=== PATIENT | male | born 1935 | race Caucasian/White ===

== ENCOUNTER → 2017-01-15 | Outpatient (CLI) | payer OTHER, MEDICARE ==
[~2017-01-15] MED LIST: AMLO2.5T PO; ASPI81TA28 PO; CRD2 PO; FRS/40 PO; LISI-729 PO; LORA-741 PO; PANT40TA PO; SIMV10TA2 PO; TRMCR515 TOP
[2017-01-15 12:55] LABS: THYROID STIMULATING HORMONE 5.19 uIu/ml (0.300-4.500)
[2017-01-15 14:01] LABS: ESTIMATED AVERAGE GLUCOSE 131 mg/dl; HA1C FLAG Normal (Normal)
== END | disposition home or self-care (01) ==
LOC: C.LABBFT 08:38
PROVIDERS: ATTEND Internal Medicine
DX: E11.9 Type 2 diabetes mellitus without complications (principal); R89.9 Unspecified abnormal finding in specimens from other organs, systems and tissues

== ENCOUNTER → 2017-03-05 | Outpatient (CLI) | payer OTHER, MEDICARE ==
[2017-03-05 14:39] LABS: THYROID STIMULATING HORMONE 2.44 uIu/ml (0.300-4.500)
== END | disposition home or self-care (01) ==
LOC: C.LAB1850 11:44
PROVIDERS: ATTEND Internal Medicine
DX: E03.9 Hypothyroidism, unspecified (principal)

== ENCOUNTER → 2017-03-27 | Outpatient (CLI) | payer OTHER, MEDICARE ==
[2017-03-27 12:05] LABS: HEMATOCRIT 38.8 % (42-52); MEAN CORPUSCULAR HEMOGLOBIN 27.5 pg (25-34); MEAN PLATELET VOLUME 11.8 fL (7.4-10.4); PLATELET COUNT 174 K/uL (130-400); RED BLOOD COUNT 4.51 M/uL (4.7-6.1); WHITE BLOOD COUNT 5.96 K/uL (4.8-10.8)
[2017-03-27 12:20] LABS: BLOOD UREA NITROGEN 44 mg/dl (7-18); BUN/CREATININE RATIO 23.2 (10-20); CALCIUM 9.1 mg/dl (8.5-10.1); CARBON DIOXIDE 25 mmol/L (21-32); CHLORIDE 109 mmol/L (98-107); GLUCOSE 106 mg/dl (70-99); POTASSIUM 4.3 mmol/L (3.5-5.1); SODIUM 142 mmol/L (136-145)
[2017-03-27 12:21] LABS: PHOSPHORUS 3.7 mg/dl (2.5-4.9)
[2017-03-27 12:56] LABS: URINE APPEARANCE CLEAR (CLEAR); URINE BILIRUBIN NEG (NEG); URINE COLOR YELLOW; URINE EPITHELIAL CELL AUTO 0-5 /lpf (0-5); URINE NITRITE NEG (NEG); URINE SPECIFIC GRAVITY 1.011 (1.000-1.030); UROBILINOGEN NEG (NEG)
[2017-03-27 12:59] LABS: MANUAL MICROSCOPIC REQUIRED? NO; REVIEW REQ? NO
[2017-03-27 13:15] LABS: URINE PROTIEN/CREAT RATIO 1.8 (0-0.2); URINE TOTAL PROTEIN 47.9 mg/dl (0-11.9)
== END | disposition home or self-care (01) ==
LOC: C.LABBFT 08:40
PROVIDERS: ATTEND Internal Medicine Nephrology
DX: I10 Essential (primary) hypertension (principal); R31.29 Other microscopic hematuria; N18.3 Chronic kidney disease, stage 3 (moderate); D64.9 Anemia, unspecified; R60.9 Edema, unspecified

== ENCOUNTER → 2017-08-07 | Outpatient (CLI) | payer OTHER, MEDICARE ==
--- NOTE | 2017-08-07 14:06 | DIAGNOSTIC IMAGING REPORT ---
L HIP UNILATERAL 2 VIEWS HISTORY: 82 years-old Male M25.552 Joint pain of left hip on [id number] acute left hip pain without reported trauma COMPARISON: CT 09/16/2012 TECHNIQUE: 2 views of the left hip FINDINGS: Surgical clip projects over the left inguinal region. Moderate left hip osteoarthritis. Calcifications of the prostate are again seen. Degenerative changes of the left SI joint and pubic symphysis also noted. No acute fracture or dislocation. IMPRESSION: 1. No acute fracture or dislocation. 2. Moderate left hip osteoarthritis. The above report was generated using voice recognition software. It may contain grammatical, syntax or spelling errors. Electronically signed by: Adeel Sanchez M.D. 08/07/2017 2:04 PM Dictated Date/Time: 08/07/2017 2:02 PM
== END | disposition home or self-care (01) ==
LOC: C.RAD1850 13:48
PROVIDERS: ATTEND Internal Medicine
DX: M25.552 Pain in left hip (principal)

== ENCOUNTER → 2017-10-01 | Outpatient (CLI) | payer OTHER, MEDICARE ==
[~2017-10-01] MED LIST changes: +GABA-112 PO; +LEVO25TA5 PO; +LEVO50TA6 PO
[2017-10-01 12:32] LABS: HEMATOCRIT 39.2 % (42-52); HEMOGLOBIN 12.6 g/dL (14.0-18.0); MEAN CELL VOLUME 85.4 fL (80-100); MEAN CORPUSCULAR HEMOGLOBIN 27.5 pg (25-34); MEAN CORPUSCULAR HGB CONC 32.1 g/dl (32-36); MEAN PLATELET VOLUME 11.5 fL (7.4-10.4); PLATELET COUNT 190 K/uL (130-400); RED CELL DISTRIBUTION WIDTH CV 14.4 % (11.5-14.5); RED CELL DISTRIBUTION WIDTH SD 44.6 fL (36.4-46.3); WHITE BLOOD COUNT 8.08 K/uL (4.8-10.8)
[2017-10-01 13:45] LABS: ALBUMIN 3.7 gm/dl (3.4-5.0); BLOOD UREA NITROGEN 46 mg/dl (7-18); CALCIUM 9.3 mg/dl (8.5-10.1); CARBON DIOXIDE 27 mmol/L (21-32); CREATININE 2.01 mg/dl (0.60-1.40); GLUCOSE 112 mg/dl (70-99); POTASSIUM 4.8 mmol/L (3.5-5.1); SODIUM 139 mmol/L (136-145)
--- NOTE | 2017-10-07 13:02 | CODING QUERY MEDICAL NECESSITY ---
CQSUPPORTING DIAGNOSIS NEEDED A supporting diagnosis is required for the test/procedure performed on this patient in order for us to be reimbursed by the patient's insurance. Please provide a supporting diagnosis for the following test/procedure listed below next to the test name along with your signature. *If there is no additional diagnosis for this patient that would support the following test/procedure please document that below next to the test/procedure. Test(s)/Procedure(s) that require a supporting diagnosis: DOS 10/01/17 VITAMIN D TEST Provider Signature: Date: Thank you Roshni Stewart Health Information Management Once completed, please kindly fax back to [phone] For questions please call [phone]
== END | disposition home or self-care (01) ==
LOC: C.LABBFT 10:22
PROVIDERS: ATTEND Internal Medicine Nephrology
DX: R60.9 Edema, unspecified (principal); E03.9 Hypothyroidism, unspecified; E55.9 Vitamin D deficiency, unspecified

== ENCOUNTER → 2017-11-03 | Outpatient (CLI) | payer OTHER, MEDICARE ==
[~2017-11-03] MED LIST changes: -GABA-112 PO; -LEVO25TA5 PO; -LEVO50TA6 PO
[2017-11-03 12:40] LABS: ALBUMIN 3.9 gm/dl (3.4-5.0); BLOOD UREA NITROGEN 74 mg/dl (7-18); CALCIUM 9.3 mg/dl (8.5-10.1); CARBON DIOXIDE 28 mmol/L (21-32); CREATININE 2.26 mg/dl (0.60-1.40); GLUCOSE 97 mg/dl (70-99); POTASSIUM 4.6 mmol/L (3.5-5.1); SODIUM 136 mmol/L (136-145)
[2017-11-03 12:51] LABS: PHOSPHORUS 3.8 mg/dl (2.5-4.9)
== END | disposition home or self-care (01) ==
LOC: C.LABBFT 09:55
PROVIDERS: ATTEND Internal Medicine
DX: I12.9 Hypertensive chronic kidney disease with stage 1 through stage 4 chronic kidney disease, or unspecified chronic kidney disease (principal); N18.3 Chronic kidney disease, stage 3 (moderate); R60.9 Edema, unspecified; R80.9 Proteinuria, unspecified; E03.9 Hypothyroidism, unspecified

== ENCOUNTER → 2017-11-25 | Outpatient (CLI) | payer OTHER, MEDICARE ==
--- NOTE | 2017-11-25 14:06 | DIAGNOSTIC IMAGING REPORT ---
CHEST 2 VIEWS ROUTINE HISTORY: R91.8 Abnormal findings on diagnostic imaging of lungR10.9 Abdom COMPARISON: Chest 05/04/2013. FINDINGS: No focal lung consolidations to suggest pneumonia. No evidence for pulmonary edema. No pleural effusions. No pneumothorax. The lungs remain mildly hyperexpanded. Calcified thoracic aorta. The heart is mildly enlarged. There is no abdominal aortic stent identified. IMPRESSION: 1. No acute process within the chest. 2. Hyperexpanded lungs suggestive of mild emphysema. 3. If there or additional concerns for an abnormality within the chest, consider follow-up chest CT for further evaluation. Electronically signed by: Benjamin Alexander M.D. 11/25/2017 2:05 PM Dictated Date/Time: 11/25/2017 2:01 PM
== END | disposition home or self-care (01) ==
LOC: C.RAD1850 12:10
PROVIDERS: ATTEND Internal Medicine
DX: R10.9 Unspecified abdominal pain (principal); R91.8 Other nonspecific abnormal finding of lung field

== ENCOUNTER → 2018-02-04 | Outpatient (CLI) | payer OTHER, MEDICARE ==
[~2018-02-04] MED LIST changes: +GABA-112 PO; +LEVO50TA6 PO; -TRMCR515 TOP
[2018-02-04 12:24] LABS: ALBUMIN 3.9 gm/dl (3.4-5.0); ALKALINE PHOSPHATASE 72 U/L (45-117); ALT/SGPT 20 U/L (12-78); AST/SGOT 19 U/L (15-37); BLOOD UREA NITROGEN 63 mg/dl (7-18); CALCIUM 8.7 mg/dl (8.5-10.1); CARBON DIOXIDE 25 mmol/L (21-32); CREATININE 2.41 mg/dl (0.60-1.40); GLUCOSE 99 mg/dl (70-99); SODIUM 140 mmol/L (136-145); TOTAL PROTEIN 8.2 gm/dl (6.4-8.2)
[2018-02-04 12:35] LABS: HEMOGLOBIN A1C 6.2 % (4.5-5.6)
== END | disposition home or self-care (01) ==
LOC: C.LABBFT 08:24
PROVIDERS: ATTEND Internal Medicine
DX: E03.9 Hypothyroidism, unspecified (principal); N18.3 Chronic kidney disease, stage 3 (moderate); E11.22 Type 2 diabetes mellitus with diabetic chronic kidney disease

== ENCOUNTER → 2018-05-19 | Outpatient (CLI) | payer OTHER, MEDICARE ==
[2018-05-19 12:42] LABS: HEMATOCRIT 37.1 % (42-52); HEMOGLOBIN 11.5 g/dL (14.0-18.0); MEAN CELL VOLUME 83.7 fL (80-100); MEAN PLATELET VOLUME 11.1 fL (7.4-10.4); PLATELET COUNT 206 K/uL (130-400); RED CELL DISTRIBUTION WIDTH CV 14.2 % (11.5-14.5); WHITE BLOOD COUNT 6.14 K/uL (4.8-10.8)
[2018-05-19 13:32] LABS: ALBUMIN 3.7 gm/dl (3.4-5.0); BLOOD UREA NITROGEN 65 mg/dl (7-18); CALCIUM 9.3 mg/dl (8.5-10.1); CARBON DIOXIDE 26 mmol/L (21-32); CREATININE 2.11 mg/dl (0.60-1.40); GLUCOSE 95 mg/dl (70-99); PHOSPHORUS 4.1 mg/dl (2.5-4.9); POTASSIUM 4.5 mmol/L (3.5-5.1); SODIUM 139 mmol/L (136-145)
== END | disposition home or self-care (01) ==
LOC: C.LABBFT 08:42
PROVIDERS: ATTEND Internal Medicine Nephrology
DX: R80.9 Proteinuria, unspecified (principal)

== ENCOUNTER 2021-12-17 19:45 | Inpatient (IN) ==
[2021-12-17 21:23] LABS: Basophils # (auto) 0.02 K/uL (0-0.2); Basophils % (auto) 0.2 %; Eosinophils # (auto) 0.07 K/uL (0-0.5); Eosinophils % (auto) 0.6 %; Hematocrit (blood only) 31.1 % (42-52); Hemoglobin 9.9 g/dL (14.0-18.0); Immature Granulocytes % (auto) 0.9 %; Lymphocytes # (auto) 0.67 K/uL (1.2-3.4); Lymphocytes % (auto) 5.9 %; Mean Corpuscular Hgb Conc 31.8 g/dL (32-36); Mean Corpuscular Volume 78.5 fL (80-100); Mean Platelet Volume 10.3 fL (7.4-10.4); Monocytes # (auto) 0.68 K/uL (0.11-0.59); Neutrophils # (auto) 9.81 K/uL (1.4-6.5); Neutrophils % (auto) 86.4 %; Platelet Count 341 K/uL (130-400); RDW Coefficient of Variation 14.7 % (11.5-14.5); RDW Standard Deviation 42.5 fL (36.4-46.3); Red Blood Count 3.96 M/uL (4.7-6.1); White Blood Count 11.35 K/uL (4.8-10.8)
[2021-12-17 21:33] LABS: INR 1.1 (0.9-1.1); Prothrombin Time 11.5 Seconds (9.0-12.0)
[2021-12-17 21:34] LABS: Albumin Globulin Ratio 0.8 (0.9-2); Albumin Level 3.2 gm/dl (3.4-5.0); BUN Creatinine Ratio 31.7 (10-20); Bilirubin,Total 0.4 mg/dl (0.2-1.0); Creatinine Clr Calc Pharmacy 13.6 ml/min; Est GFR (Non-African American) 12.9 ml/min; Globulin 3.9 gm/dl (2.5-4.0); Magnesium 1.8 mg/dl (1.7-2.4); Potassium 5.2 mmol/L (3.5-5.1); Total Protein 7.1 gm/dl (6.0-8.3)
[2021-12-17 21:37] LABS: Troponin I 0.12 ng/ml (0-0.04)
[2021-12-17] MEDS ORDERED: dexAMETHasone**PF** 10 MG/ML VIAL IV ONE (21:47)
[2021-12-17] MEDS ORDERED: PIPERACILLIN/TAZOBACTAM 4.5 GM/120 ML BAG IV ONE (21:47)
[2021-12-17] MEDS ORDERED: PIPERACILL/TAZOBAC CONSULT ACTIVE PRN (21:47)
[2021-12-17] MEDS ORDERED: ALBUT/IPRATROP 3MG/0.5MG NEB 3 ML VIAL NEB STA (21:47)
[2021-12-17] MEDS ORDERED: guaiFENesin 600 MG TABCR PO STA (21:47)
--- NOTE | 2021-12-17 22:13 | Emergency Department Note ---
Impression & Plan Aspiration pneumonia, Acute on chronic kidney failure, Metastatic disease, Mediastinal mass, Metabolic acidosis ED Provider Note NAME: HEATH CABELLO AGE: 86 SEX: M ARRIVES VIA: Ambulance INFORMANT: Patient ED PROVIDER(S): Fransisco Yang MD CHIEF COMPLAINT: cough, sob PLAN: Disposition: admit MEDICAL DECISION MAKING: The patient is a pleasant 86-year-old gentleman with a past medical history of CKD, CVA with history of dysphagia who presents to the emergency department company by his for worsening cough congestion shortness of breath over the past month which they report has been treated through their doctor with antibiotics and most recently treated for aspiration pneumonia. They report that the patient did not want to come into the hospital prior to this but has been getting worse. They deny fevers, chills, nausea, vomiting, diarrhea. She reports that he has been urinating less over the past couple of days and has not been eating or drinking much. On arrival patient is acute on chronically ill-appearing with diminished and underlying scattered rhonchi bilaterally of lower lung gifford. He is afebrile with heart rate in the 120s and O2 saturation 86% on room air he has 1+ pitting edema the right lower extremity. EKG demonstrates sinus tachycardia with bifascicular block without recent EKGs for comparison. There is no overt ST elevation. Chest x-ray with right lower lung field density per my preliminary review. This is further characterized on CT of the abdomen pelvis WBC 11.3K, nonspecific. H/H 9.9/31.1 within prior range of values. Platelets within normal limits. Creatinine is 3.9 increased from patient's baseline range of 2.5. Chemistry demonstrates mild metabolic acidosis with bicarb of 17 and anion gap of 16. Lactic acid is within normal limits. Initial troponin 0.12, m ildly elevated. BNP 370 specific in the setting of the patient's acute on chronic renal failure. Lipase is not significantly elevated. Procalcitonin is elevated at 89 but in the setting of the patient's renal failure. COVID-19, RNA, NASIM test was negative. CT of the abdomen pelvis was performed and demonstrates suspected right infrahilar mass with mass-effect and atelectasis of the right middle and lower lobes. Note is made of suspected hepatic metastases. The patient was treated empirically for sepsis with cefepime, clindamycin and vancomycin. He did improve after initial treatment with guaifenesin, DuoNeb and dexamethasone. Findings were reviewed with the patient and his and their agree with plan for admission. Case was d/w Dr. Liz [facility] hospitalist who will evaluate the patient for admission. Triage Nursing notes reviewed and agree them. Prior medical records reviewed Vital Signs: reviewed and remarkable for tachycardia, hypoxia. Differential diagnosis: Reactive airway disease, pneumonia, pneumothorax, COPD, CHF, infections, cardiac ischemia, pulmonary embolism, musculoskeletal, gastrointestinal, as well as other pathologies. ER treatment provided: See below. Diagnostics interpreted by me: ECG: Sinus tachycardia, right bundle branch block, left anterior fascicular block, 126 bpm, no overt ST elevation, QTC 480, QRS 136, no recent EKG for comparison. Cardiac Monitoring: An order for continuous cardiac monitoring was placed and demonstrated Sinus tachycardia, 126 bpm, no ectopy. Laboratory studies: See below Imaging studies: See below Consultation(s): Case was d/w KIM Lara hospitalist who will evaluate the patient for admission. HPI: The patient is a pleasant 86-year-old gentleman with a past medical history of CKD, CVA with history of dysphagia who presents to the emergency department company by his for worsening cough congestion shortness of breath over the past month which they report has been treated through their doctor with antibiotics and most recently treated for aspiration pneumonia. They report that the patient did not want to come into the hospital prior to this but has been getting worse. They deny fevers, chills, nausea, vomiting, diarrhea. She reports that he has been urinating less over the past couple of days and has not been eating or drinking much. ROS: See above HPI for pertinent positives & negatives. A total of 10 systems reviewed and were otherwise negative. VITALS:See Below PHYSICAL EXAMINATION: GENERAL: Awake, alert, acute on chronically-appearing, in no distress HENT: Normocephalic, atraumatic. Oropharynx with dry mucous membranes and otherwise unremarkable. EYES: Normal conjunctiva. Sclera non-icteric. NECK: Supple. No nuchal rigidity. FROM. No JVD. RESPIRATORY: Diminished with underlying scattered rhonchi bilaterally of lower lung gifford. CARDIAC: Tachycardic rate, normal rhythm. Extremities warm and well perfused. Pulses equal. ABDOMEN: Soft, non-distended. No tenderness to palpation. No rebound or guarding. No masses. RECTAL: Deferred. MUSCULOSKELETAL: Chest examination reveals no tenderness. The back is sym metrical on inspection without obvious abnormality. There is no CVA tenderness to palpation. No joint edema. LOWER EXTREMITIES: Right lower leg with 1+ pitting edema. No tenderness or discoloration. NEURO: Normal sensorium. No sensory or motor deficits noted. SKIN: No rash or jaundice noted. ED Course: Critical Care: I have personally spent greater than 35 minutes of critical care time in the direct management of this patient. This includes bedside care, interpretation of diagnostic studies, and testing, discussion with consultants, patient, and family members, and other required patient management activities. This 35 minutes is in excess of all separately billable procedures. Fransisco Yang MD Past Med/Surg History Medical History Allergic rhinitis Anemia Arthritis of left hip Atherosclerosis Bicuspid aortic valve pt unsure Chronic kidney disease, stage 3 (moderate) follows dr. murray- [facility] Diabetes mellitus, controlled Diverticular disease Diverticulosis Edema not recently- lasix has helped Enlarged prostate with lower urinary tract symptoms (LUTS) Esophageal reflux Fatigue Hypercholesterolemia Hypertension Hypothyroidism Left ventricular hypertrophy pt unsure of this Low back pain Lumbar disc disease Patent foramen ovale Pelvic pain Retention of urine Stroke (2008) Oct 2008- from PFO in heart - [place]- speech slower/ right sided weakness/ follows with dr. rose- ASA- decreased then stopped- treatment per pt's was AAA repair Venous insufficiency pt denies this Surgical History Abdominal aortic aneurysm (AAA) with repair- february 03, 2009- second oct 23, 2009- dr. Schuster at [place] did both procedures- follows with dr. orourke /[place] History of colonoscopy History of endovascular stent graft for abdominal aortic aneurysm (AAA) (2008) History of endovascular stent graft for abdominal aortic aneurysm (AAA) (2009) History of inguinal hernia repair Hx of transurethral resection of prostate Family History Unknown Heart disease Hypertension Diabetes Prostate cancer Other Breast cancer Colorectal cancer Coronary heart disease Social History Smoking Status: Unknown if ever smoked Second Hand Exposure: Yes; Hx Alcohol Use: No Hx Substance Use: No Preferred Language: Omani Communication Ability: Effective [employer] Lease [employer]ker Required: No Beliefs That Will Affect Care: None Current Living Situation: Spouse current occupational status: retired Feels Safe at Home: Yes caffeine: Yes Dental Care, Regularly: Yes Physical Activity Frequency: Daily Seatbelt Use: always Assistive Devices: Glasses Allergies Allergies Allergy/AdvReac Type Severity Reaction Status Date / Time losartan [From Cozaar] AdvReac Unknown Intolerance, Verified 12/17/21 19:59 fatigue Home Meds Previous Rx's Medication Instructions Recorded Contour Test Strips (blood sugar #50 ea NS 02/07/20 diagnostic) fluticasone propionate 50 2 spray INTRANASAL DAILY #15.8 ml 08/08/20 mcg/actuation nasal spray,suspension (Flonase Allergy Relief) loratadine 10 mg tablet 10 mg PO DAILY #30 tab 08/08/20 pantoprazole 40 mg tablet,delayed 40 mg PO DAILY #90 tab 08/23/20 release levothyroxine 50 mcg tablet 50 mcg PO QAM #90 tab 08/07/21 simvastatin 20 mg tablet 20 mg PO HS #90 tab 08/13/21 doxazosin 4 mg tablet 4 mg PO HS #90 tab 10/22/21 lisinopril 2.5 mg tablet 5 mg PO QAM #180 tab 10/22/21 furosemide 40 mg tablet 40 mg PO DAILY #90 tab 11/19/21 amoxicillin 500 mg-potassium 1 tab PO Q12H #20 tab 12/14/21 clavulanate 125 mg tablet (Augmentin) codeine 10 mg-guaifenesin 100 mg/5 5 ml PO Q6H PRN #237 ml 12/14/21 mL oral liquid Results & Data (ED) Vital Signs Vital Signs - 24 hr 12/17/21 19:55 12/17/21 20:34 12/17/21 20:35 Pulse Rate 119 H Pulse Rate [Apical] 123 H Pulse Rhythm [Apical] Regular Pulse Strength [Apical] Respiratory Rate 23 25 H Respiratory Effort / Characteristics Short of Breath SOB on Exertion Respiratory Depth Respiratory Pattern Blood Pressure 107/58 L Blood Pressure [Left Arm] Blood Pressure Mean 74 Blood Pressure Mean [Left Arm] Blood Pressure Position [Left Arm] Pulse Oximetry 98 87 L Oxygen Delivery Method Room Air Oxygen Flow Rate Sepsis Recent Fever Within 48 Hours No Sepsis New/Unexplained Change in Mental Status No Sepsis Action Taken by Nursing No Action Required 12/17/21 20:59 12/17/21 21:00 12/17/21 22:00 Pulse Rate Pulse Rate [Apical] 91 H Pulse Rhythm [Apical] Pulse Strength [Apical] Respiratory Rate 20 Respiratory Effort / Characteristics Respiratory Depth Respiratory Pattern Blood Pressure Blood Pressure [Left Arm] 128/63 Blood Pressure Mean Blood Pressure Mean [Left Arm] 84 Blood Pressure Position [Left Arm] Pulse Oximetry 86 L 97 Oxygen Delivery Method Oxymask Nasal Cannula Oxymask Oxygen Flow Rate 10 5 8 Sepsis Recent Fever Within 48 Hours Sepsis New/Unexplained Change in Mental Status Sepsis Action Taken by Nursing 12/18/21 00:22 12/18/21 01:50 Pulse Rate 80 Pulse Rate [Apical] 90 Pulse Rhythm [Apical] Regular Pulse Strength [Apical] Normal Respiratory Rate 18 19 Respiratory Effort / Characteristics Non-Labored Spontaneous Respiratory Depth Normal Respiratory Pattern Regular Blood Pressure 138/60 Blood Pressure [Left Arm] 128/63 Blood Pressure Mean Blood Pressure Mean [Left Arm] 84 Blood Pressure Position [Left Arm] Semi-fowlers Pulse Oximetry 95 98 Oxygen Delivery Method Oxymask Oxymask Oxygen Flow Rate 8 3 Sepsis Recent Fever Within 48 Hours Sepsis New/Unexplained Change in Mental Status Sepsis Action Taken by Nursing Laboratory Data Attestation: I reviewed the patient's lab results. Result diagrams: 12/17/21 20:00 12/17/21 20:00 Lab Results 12/17/21 12/17/21 12/17/21 Range/Units 20:00 20:00 20:00 WBC 11.35 H (4.8-10.8) K/uL RBC 3.96 L (4.7-6.1) M/uL Hgb 9.9 L (14.0-18.0) g/dL Hct 31.1 L (42-52) % MCV 78.5 L (80-100) fL MCH 25.0 (25-34) pg MCHC 31.8 L (32-36) g/dL RDW Std Deviation 42.5 (36.4-46.3) fL RDW Coeff of Olivia 14.7 H (11.5-14.5) % Plt Count 341 (130-400) K/uL MPV 10.3 (7.4-10.4) fL Immature Gran % (Auto) 0.9 % Neut % (Auto) 86.4 % Lymph % (Auto) 5.9 % Lyon % (Auto) 6.0 % Eos % (Auto) 0.6 % Baso % (Auto) 0.2 % Neut # (Auto) 9.81 H (1.4-6.5) K/uL Lymph # (Auto) 0.67 L (1.2-3.4) K/uL Lyon # (Auto) 0.68 H (0.11-0.59) K/uL Eos # (Auto) 0.07 (0-0.5) K/uL Baso # (Auto) 0.02 (0-0.2) K/uL Immature Gran # (Auto) 0.10 H (0.00-0.02) K/uL PT 11.5 (9.0-12.0) Seconds INR 1.1 (0.9-1.1) Sodium 134 L (136-145) mmol/L Potassium 5.2 H (3.5-5.1) mmol/L Chloride 101 (98-107) mmol/L Carbon Dioxide 17 L (21-32) mmol/L Anion Gap 16 H (3-11) BUN 126 H (6-23) mg/dl Creatinine 3.97 H (0.6-1.4) mg/dl Est Cr Clr Drug Dosing 13.6 ml/min Est GFR ( Amer) 15.0 ml/min Est GFR (Non-Af Amer) 12.9 ml/min BUN/Creatinine Ratio 31.7 H (10-20) Glucose 128 H (70-99(Fasting)) mg/dl Lactate (0.4-2.0) mmol/L Calcium 9.0 (8.5-10.1) mg/dl Magnesium 1.8 (1.7-2.4) mg/dl Total Bilirubin 0.4 (0.2-1.0) mg/dl AST 31 (13-39) U/L ALT 19 (7-52) U/L Alkaline Phosphatase 142 H (34-104) U/L Troponin I 0.12 H* (0-0.04) ng/ml B-Natriuretic Peptide (0-100) pg/ml Total Protein 7.1 (6.0-8.3) gm/dl Albumin 3.2 L (3.4-5.0) gm/dl Globulin 3.9 (2.5-4.0) gm/dl Albumin/Globulin Ratio 0.8 L (0.9-2) Lipase 100 H (11-82) U/L Procalcitonin (0-0.5) ng/ml SARS-CoV-2, RNA, NAAT (NEGATIVE) 12/17/21 12/17/21 12/17/21 Range/Units 21:00 21:49 21:49 WBC (4.8-10.8) K/uL RBC (4.7-6.1) M/uL Hgb (14.0-18.0) g/dL Hct (42-52) % MCV (80-100) fL MCH (25-34) pg MCHC (32-36) g/dL RDW Std Deviation (36.4-46.3) fL RDW Coeff of Olivia (11.5-14.5) % Plt Count (130-400) K/uL MPV (7.4-10.4) fL Immature Gran % (Auto) % Neut % (Auto) % Lymph % (Auto) % Lyon % (Auto) % Eos % (Auto) % Baso % (Auto) % Neut # (Auto) (1.4-6.5) K/uL Lymph # (Auto) (1.2-3.4) K/uL Lyon # (Auto) (0.11-0.59) K/uL Eos # (Auto) (0-0.5) K/uL Baso # (Auto) (0-0.2) K/uL Immature Gran # (Auto) (0.00-0.02) K/uL PT (9.0-12.0) Seconds INR (0.9-1.1) Sodium (136-145) mmol/L Potassium (3.5-5.1) mmol/L Chloride (98-107) mmol/L Carbon Dioxide (21-32) mmol/L Anion Gap (3-11) BUN (6-23) mg/dl Creatinine (0.6-1.4) mg/dl Est Cr Clr Drug Dosing ml/min Est GFR ( Amer) ml/min Est GFR (Non-Af Amer) ml/min BUN/Creatinine Ratio (10-20) Glucose (70-99(Fasting)) mg/dl Lactate (0.4-2.0) mmol/L Calcium (8.5-10.1) mg/dl Magnesium (1.7-2.4) mg/dl Total Bilirubin (0.2-1.0) mg/dl AST (13-39) U/L ALT (7-52) U/L Alkaline Phosphatase (34-104) U/L Troponin I (0-0.04) ng/ml B-Natriuretic Peptide 376 H (0-100) pg/ml Total Protein (6.0-8.3) gm/dl Albumin (3.4-5.0) gm/dl Globulin (2.5-4.0) gm/dl Albumin/Globulin Ratio (0.9-2) Lipase (11-82) U/L Procalcitonin 89.79 H (0-0.5) ng/ml SARS-CoV-2, RNA, NAAT NEGATIVE (NEGATIVE) 12/17/21 Range/Units 21:49 WBC (4.8-10.8) K/uL RBC (4.7-6.1) M/uL Hgb (14.0-18.0) g/dL Hct (42-52) % MCV (80-100) fL MCH (25-34) pg MCHC (32-36) g/dL RDW Std Deviation (36.4-46.3) fL RDW Coeff of Olivia (11.5-14.5) % Plt Count (130-400) K/uL MPV (7.4-10.4) fL Immature Gran % (Auto) % Neut % (Auto) % Lymph % (Auto) % Lyon % (Auto) % Eos % (Auto) % Baso % (Auto) % Neut # (Auto) (1.4-6.5) K/uL Lymph # (Auto) (1.2-3.4) K/uL Lyon # (Auto) (0.11-0.59) K/uL Eos # (Auto) (0-0.5) K/uL Baso # (Auto) (0-0.2) K/uL Immature Gran # (Auto) (0.00-0.02) K/uL PT (9.0-12.0) Seconds INR (0.9-1.1) Sodium (136-145) mmol/L Potassium (3.5-5.1) mmol/L Chloride (98-107) mmol/L Carbon Dioxide (21-32) mmol/L Anion Gap (3-11) BUN (6-23) mg/dl Creatinine (0.6-1.4) mg/dl Est Cr Clr Drug Dosing ml/min Est GFR ( Amer) ml/min Est GFR (Non-Af Amer) ml/min BUN/Creatinine Ratio (10-20) Glucose (70-99(Fasting)) mg/dl Lactate 1.3 (0.4-2.0) mmol/L Calcium (8.5-10.1) mg/dl Magnesium (1.7-2.4) mg/dl Total Bilirubin (0.2-1.0) mg/dl AST (13-39) U/L ALT (7-52) U/L Alkaline Phosphatase (34-104) U/L Troponin I (0-0.04) ng/ml B-Natriuretic Peptide (0-100) pg/ml Total Protein (6.0-8.3) gm/dl Albumin (3.4-5.0) gm/dl Globulin (2.5-4.0) gm/dl Albumin/Globulin Ratio (0.9-2) Lipase (11-82) U/L Procalcitonin (0-0.5) ng/ml SARS-CoV-2, RNA, NAAT (NEGATIVE) Administered Medications Sodium Chloride (Nss) 500 mls @ 125 mls/hr IV .Q4H AMADOU Stop: 01/16/22 23:44 Last Admin: 12/18/21 00:31 Dose: 125 mls/hr Documented by: [id number] Vancomycin HCl 1,500 mg/ (Sodium Chloride) 530 mls @ 200 mls/hr IV NOW ONE Stop: 12/18/21 02:29 Last Admin: 12/18/21 01:05 Dose: 200 mls/hr Documented by: [id number] Discontinued Medications Albuterol (Albut/Ipratrop 3mg/0.5mg Neb 3 Ml Vial) 3 ml NEB NOW STA; Protocol Stop: 12/17/21 21:48 Last Admin: 12/17/21 22:06 Dose: 3 ml Documented by: [id number] Dexamethasone Sodium Phosphate (DexamethasonePf 10 Mg/Ml Vial) 10 mg IV NOW ONE Stop: 12/17/21 21:48 Last Admin: 12/17/21 22:06 Dose: 10 mg Documented by: [id number] Guaifenesin (Guaifenesin 600 Mg Tabcr) 600 mg PO NOW STA Stop: 12/17/21 21:48 Last Admin: 12/17/21 22:06 Dose: 600 mg Documented by: [id number] Piperacillin Sod/Tazobactam Sod (Zosyn) 4.5 gm in 120 mls @ 240 mls/hr IV NOW ONE Stop: 12/17/21 22:16 Last Infusion: 12/17/21 22:55 Dose: 0 mls/hr Documented by: [id number] Admin: 12/17/21 22:06 Dose: 240 mls/hr Documented by: [id number] Clindamycin Phosphate 600 mg/ (Dextrose) 54 mls @ 100 mls/hr IV ONE ONE Stop: 12/18/21 00:23 Last Infusion: 12/18/21 01:04 Dose: 0 mls/hr Documented by: [id number] Admin: 12/18/21 00:31 Dose: 100 mls/hr Documented by: [id number] Imaging Data Radiologist's Impression: [facility] Preliminary Findings Only See Final Report For Complete Findings CT ABDOMEN & PELVIS Without Contrast: Comparison to April 27, 2019. There is a new large mass lesion in the right infrahilar region. The exact size is difficult to measure due to atelectasis of the adjacent right middle lobe, at least 6 cm in size obstructing the right middle and lower lobe bronchi. There is also a 2.4 cm mass in the right lower lobe. Numerous subtle ill-defined mass lesion is throughout an enlarged liver characteristic of hepatic metastases. Severe coronary and mitral calcification with mild cardiomegaly. Previous stent graft repair of abdominal aortic aneurysm with residual aneurysm sac measuring 4.9 cm, unchanged in size. No evidence of aneurysm rupture. Constipation was 6.5 cm of stool in the rectum. There is diverticulosis throughout the sigmoid colon. Bowel loops are not otherwise nondilated. No acute inflammatory changes are seen involving the bowel. The appendix is normal. Cholelithiasis with several calcified gallstones measuring up to 1 cm in diameter. No pericholecystic inflammation or biliary duct dilation is identified. Mild bilateral renal atrophy. There is a simple cyst in the upper pole the left kidney measuring 4.2 cm. No follow-up is necessary. No hydronephrosis or ureterolithiasis. The urinary bladder is distended but nondilated. Mild degenerative changes throughout the spine. No acute fracture or destructive bone lesion. Radiologist: Dm Liz MD Study ready at 22:28 and initial results transmitted at 22:37 Discharge Plan Visit Data Chief Complaint: Shortness of Breath/Dyspnea Stated Complaint: shortness of breath ED Provider: Fransisco Yang Discharge Problem: Aspiration pneumonia, Acute on chronic kidney failure, Metastatic disease, Mediastinal mass, Metabolic acidosis Discharge Instructions Interventions: ED Discharge Assessment Last Done: 12/18/21 01:50 Forms Stand Alone Forms: [employer] Prescriptions Prescriptions: No Action (DME) Contour Test Strips Strip See Dose Instructions .ROUTE .MEDSUPPLY Qty: 50 RF: 2 pantoprazole 40 mg tablet,delayed release (DR/EC) 40 mg PO DAILY Qty: 90 RF: 3 levothyroxine 50 mcg tablet 50 mcg PO QAM Qty: 90 RF: 3 simvastatin 20 mg tablet 20 mg PO HS Qty: 90 RF: 3 doxazosin 4 mg tablet 4 mg PO HS Qty: 90 RF: 3 lisinopril 2.5 mg tablet 5 mg PO QAM Qty: 180 RF: 3 Hold Instructions: decreased BP furosemide 40 mg tablet 40 mg PO DAILY Qty: 90 RF: 3 Hold Instructions: decrease BP codeine-guaifenesin 10-100 mg/5 mL liquid 5 ml PO Q6H PRN (Reason: allergy symptoms) Qty: 237 RF: 0 amoxicillin-pot clavulanate [Augmentin] 500-125 mg tablet 1 tab PO Q12H Qty: 20 RF: 0 loratadine 10 mg tablet 10 mg PO DAILY Qty: 30 RF: 5 fluticasone propionate [Flonase Allergy Relief] 50 mcg/actuation spray,suspension 2 spray intranasal DAILY Qty: 15.8 RF: 5 Referrals Referrals: Bryon Rose MD [Primary Care Provider] - Discharge Problem: Aspiration pneumonia Qualifiers: Aspiration pneumonia type: unspecified Laterality: right Lung location: lower lobe of lung Qualified Code(s): J69.0 - Pneumonitis due to inhalation of food and vomit Acute on chronic kidney failure Qualifiers: Acute renal failure type: unspecified Chronic kidney disease stage: unspecified stage Qualified Code(s): N17.9 - Acute kidney failure, unspecified Metastatic disease Qualifiers: Area of secondary neoplastic involvement: unspecified site Qualified Code(s): C79.9 - Secondary malignant neoplasm of unspecified site
--- NOTE | 2021-12-17 23:48 | History & Physical Report ---
Date of Service December 17, 2021 Assessment & Plan (1) Acute on chronic kidney failure: (2) Metastatic disease: (3) Mass of right lung: (4) Postobstructive pneumonia: (5) Enlarged prostate with lower urinary tract symptoms (LUTS): (6) Rhinitis: (7) Edema: (8) Hypertension: (9) Hypothyroidism: (10) Hypercholesterolemia: (11) Elevated troponin: (12) Chronic kidney disease, stage 3 (moderate): (13) Esophageal reflux: Plan: Dr. Gerson Rene is an 86-year-old male with past medical history of aortic stenosis, BPH, CKD 3 with baseline creatinine around 2.4-2.5, CVA with dysphagia, diabetes, GERD, hyperlipidemia, hypertension, hypothyroidism, rhinitis who came to [facility] due to an approximately 1 month history of cough, congestion, shortness of breath. FOund to have likely lung cancer with liver metastases and postobstructive pneumonia. Lung masses with liver metastases & postobstructive pneumonia CT with large right infrahilar mass at least 6 cm in side obstructing right middle and lower lobe bronchi, additional 2.4 cm mass in right lower lobe, numerous mass lesions throughout enlarged liver characteristic of liver metastases At current time, patient and wish to evaluate options and decide whether to pursue treatment Consult pulmonology Received clindamycin, vancomycin, Zosyn in the ED will continue on Zosyn for now MRSA nasal swab positive will cover with vancomycin as well Continue home guaifenesin with codeine for cough reduction Acetaminophen and morphine 1 mg every 4 as needed for ongoing rib pain Oxygen supplementation as needed Acute on chronic kidney disease Baseline creatinine seems to be around 2.4-2.5 Creatinine on admission at 3.97 with BUN of 126, BUN/creatinine ratio of 31.7 ALEC likely due to dehydration Continue NSS at 125 cc/h started in ED Hold lisinopril and Lasix Avoid nephrotoxins Right lower extremity swelling Venous Doppler ordered If positive for DVT, will require anticoagulation Does have mildly elevated troponin, BNP, oxygen requirement, new malignancy Maintain high degree of vigilance for possibility of PE Elevated troponin Likely supply demand mismatch Trend every 8 hours Elevated BNP BNP elevation could potentially be due to pulmonary malignancy Considered echocardiogram, but will hold off at this time as he seems less likely to be in heart failure -In the setting of ALEC, good idea to avoid contrast for echo BPH with LUTS Continue doxazosin Rhinitis Continue Flonase and loratadine Hypertension/chronic edema Hold furosemide and lisinopril in the setting of ALEC GERD Continue pantoprazole Hyperlipidemia Continue simvastatin DVT prophylaxis: Heparin SQ Diet: Heart healthy/carb consistent, NSS at 125 cc/h Dispo: Admit to med telemetry CODE STATUS: DNR/DNI History of Present Illness Primary Care Provider: MD Dr. Gerson Putnam is an 86-year-old male with past medical history of aortic stenosis, BPH, CKD 3 with baseline creatinine around 2.4-2.5, CVA with dysphagia, diabetes, GERD, hyperlipidemia, hypertension, hypothyroidism, rhinitis who came to [facility] due to an approximately 1 month history of cough, congestion, shortness of breath. In the outpatient setting, patient had chest x-rays consistent with pneumonia and was treated with several courses of antibiotics, including doxycycline and Augmentin. He decided to come in today as his cough had not improved, and if anything had worsened. Additionally, patient felt significantly short of breath and had developed rib pain from constant coughing. Patient has had associated weakness and weight loss. He did have a fall at home on 12/16, but did not hit his head or have any significant injury from it. He was advised by his primary care provider to visit the emergency department, but patient had initially refused. Upon arrival to the ED, patient was found to be hypoxic to 86%. He had lab work showing mild leukocytosis to 11.35, anemia with hemoglobin of 9.9, platelet count of 341. He was found to be hyponatremic at 134, hyperkalemic at 5.2, elevated BUN to 126, creatinine elevated to 3.97 (baseline around 2.4), had alk phos increased to 142, troponin of 0.12, BNP of 376, procalcitonin of 89.79. A CT of the chest showed a large mass lesion in the right infrahilar region, which was at least 6 cm in size obstructing the right middle and lower lobe bronchi. Also showed 2.4 cm mass in the right lower lobe, as well as numerous ill-defined mass lesions throughout an enlarged liver, characteristic of liver metastases. Upon discussion of his imaging findings, patient stated that he expected something like this. He states he smoked a pipe for many years when he used to go bird watching. At this time, patient is interested in discussing treatment possibilities, to ultimately decide if he believes it will be worthwhile for him. He is clear that he would not want any resuscitative efforts should he have a cardiac or respiratory arrest. At this time complaining of ongoing productive cough with associated rib pain. Denying fever, chills, nausea, vomiting, chest pain, palpitations, abdominal pain, headache, dizziness, numbness, rash. Allergies Allergy/AdvReac Type Severity Reaction Status Date / Time losartan [From Cozaar] AdvReac Unknown Intolerance, Verified 12/17/21 19:59 fatigue Home Medications Medication Instructions Recorded Confirmed Type Contour Test Strips (blood sugar #50 ea NS 02/07/20 07/12/21 Rx diagnostic) fluticasone propionate 50 2 spray INTRANASAL DAILY #15.8 ml 08/08/20 12/17/21 Rx mcg/actuation nasal spray,suspension (Flonase Allergy Relief) loratadine 10 mg tablet 10 mg PO DAILY #30 tab 08/08/20 12/17/21 Rx pantoprazole 40 mg tablet,delayed 40 mg PO DAILY #90 tab 08/23/20 12/17/21 Rx release levothyroxine 50 mcg tablet 50 mcg PO QAM #90 tab 08/07/21 12/17/21 Rx simvastatin 20 mg tablet 20 mg PO HS #90 tab 08/13/21 12/17/21 Rx doxazosin 4 mg tablet 4 mg PO HS #90 tab 10/22/21 12/17/21 Rx lisinopril 2.5 mg tablet 5 mg PO QAM #180 tab 10/22/21 12/17/21 Rx furosemide 40 mg tablet 40 mg PO DAILY #90 tab 11/19/21 12/17/21 Rx amoxicillin 500 mg-potassium 1 tab PO Q12H #20 tab 12/14/21 12/17/21 Rx clavulanate 125 mg tablet (Augmentin) codeine 10 mg-guaifenesin 100 mg/5 5 ml PO Q6H PRN #237 ml 12/14/21 12/17/21 Rx mL oral liquid Past Med/Surg History Medical History Allergic rhinitis Anemia Arthritis of left hip Atherosclerosis Bicuspid aortic valve pt unsure Chronic kidney disease, stage 3 (moderate) follows dr. ta [facility] Diabetes mellitus, controlled Diverticular disease Diverticulosis Edema not recently- lasix has helped Enlarged prostate with lower urinary tract symptoms (LUTS) Esophageal reflux Fatigue Hypercholesterolemia Hypertension Hypothyroidism Left ventricular hypertrophy pt unsure of this Low back pain Lumbar disc disease Patent foramen ovale Pelvic pain Retention of urine Stroke (2008) Oct 2008- from PFO in heart - [place]- speech slower/ right sided weakness/ follows with dr. murdock- ASA- decreased then stopped- treatment per pt's was AAA repair Venous insufficiency pt denies this Surgical History Abdominal aortic aneurysm (AAA) with repair- february 03, 2009- second oct 23, 2009- dr. Schuster at [place] did both procedures- follows with dr. orourke /[place] History of colonoscopy History of endovascular stent graft for abdominal aortic aneurysm (AAA) (2008) History of endovascular stent graft for abdominal aortic aneurysm (AAA) (2009) History of inguinal hernia repair Hx of transurethral resection of prostate Family History Unknown Heart disease Hypertension Diabetes Prostate cancer Other Breast cancer Colorectal cancer Coronary heart disease Social History Smoking Status: Unknown if ever smoked Second Hand Exposure: Yes; Hx Alcohol Use: No Hx Substance Use: No Preferred Language: Andorran Communication Ability: Effective Planning Management It Specialist Required: No Beliefs That Will Affect Care: None Current Living Situation: Spouse current occupational status: retired Feels Safe at Home: Yes caffeine: Yes Dental Care, Regularly: Yes Physical Activity Frequency: Daily Seatbelt Use: always Assistive Devices: Glasses Review of Systems Review of Systems: All systems reviewed & are unremarkable except as noted in HPI & below Physical Exam Physical Exam: GENERAL: A&Ox3. NAD. Ill-appearing. HEENT: PERRL, EOMI. Dry mucous membranes. NECK: No JVD. Supple. CHEST/LUNGS: Rhonchi in bilateral lower lungs, no wheezes, no crackles. HEART: RRR. No m/g/r. No carotid bruits. ABDOMEN: NT/ND, soft. BS+ x4 EXTREMITIES: No cyanosis, no clubbing. Mild swelling of the right lower extremity. Homans' sign negative. SKIN: Warm and dry. No rashes or lesions. PSYCHIATRIC: Euthymic affect, no SI, no pressured speech, no hallucinations NEUROLOGIC: No FND. CN II-XII grossly intact. Results & Data Results & Data ([facility]) Vital Signs (Past 12 Hours) Vital Signs Pulse Pulse Resp BP BP Pulse Ox 12/17/21 22:00 91 H 20 128/63 97 12/17/21 21:00 86 L 12/17/21 20:35 123 H 25 H 87 L 12/17/21 19:55 119 H 23 107/58 L 98 Supervising Physician Co-Signing Physician Notes Patient seen and examined, chart reviewed, case discussed with Dr. Luke Collazo and I agree with the assessment and plan as discussed above. In brief, patient is an 86yo male with history of DM, bicuspid aortic valve, AAA s/p repair/endovascular stent grafting presenting with 1 month of persistent cough. Patient considered for PNA - received several courses of outpatient treatment Workup in the ER revealed several large lung masses concerning for malignancy. Lung collapse Possible PNA On exam patient appears ill in appearance, somnolent Breathing comfortably Skin - intact HEENT - NC/AT, PERRL, MMM Heart - +S1/S2, regular, 4/6 KARLI across precordium to carotids Lungs - Diminished BS on right, coarse BS on left Abd- +BS, soft, NT/ND Ext - RLE edema Labs and images reviewed Assessment/plan -Zosyn for possible PNA -Pulmonary consultation - ?bronchoscopy for possible diagnostic/therapeutic management -Control of cough - rest is very important to patient and as he has not been able to sleep for several days -Remainder as above Resident Activity Tracking Resident Involvement: Resident Care Provided Care Provided: Adult Hospital Medicine
[2021-12-17] MEDS ORDERED: CLINDAMYCIN 600 MG in DEXTROSE 5% 50 ML IV ONE (23:51)
[2021-12-17] MEDS ORDERED: VANCOMYCIN CONSULT ACTIVE PRN (23:51)
[2021-12-17] MEDS ORDERED: VANCOMYCIN HCL 1,500 MG in SODIUM CHLORIDE 0.9% 500 ML IV ONE (23:51)
[2021-12-18] MEDS: SODIUM CHLORIDE 0.9% 500 ML IV SCH ×6 (00:31→23:20)
[2021-12-18] MEDS ORDERED: MoRPHine SULFATE 4 MG/ML 1 ML CARP\\VIAL ONE (02:03)
--- NOTE | 2021-12-18 03:15 | Billing Data ---
Date of Service December 18, 2021 Coding Level of Care Code 82083 Initial Inpt Care Lvl 3
[2021-12-18] MEDS ORDERED: PIPERACILL/TAZOBAC CONSULT ACTIVE PRN (04:04)
[2021-12-18] MEDS ORDERED: ACETAMINOPHEN 325 MG TAB PO PRN (04:04)
[2021-12-18] MEDS ORDERED: ONDANSETRON INJ 2 MG/ML 2 ML VIAL IV PRN (04:04)
[2021-12-18] MEDS ORDERED: PIPERACILLIN/TAZOBACTAM 2.25 GM in DEXTROSE 5% 100 ML IV SCH (04:04)
[2021-12-18] MEDS ORDERED: guaiFENesin/CODEINE 100MG/10MG 5ML UDC PO PRN (04:04)
[2021-12-18] MEDS: PIPERACILLIN/TAZOBACTAM 3.375 GM in DEXTROSE 5% 100 ML IV SCH ×2 (06:00→16:11)
[2021-12-18] MEDS: LEVOTHYROXINE SODIUM 50 MCG TABLET PO SCH (06:04)
--- NOTE | 2021-12-18 07:07 | XRay Report ---
XR chest 1V portable CLINICAL HISTORY: Chest Pain. Follow-up right middle lobe opacity COMPARISON STUDY: 12/13/2020 TECHNIQUE: 1 view of the chest FINDINGS: Single frontal view of the chest demonstrates the cardiomediastinal silhouette to be within normal li mits. There is again opacification of the lateral segment of the right middle lobe.. The differential diagnosis includes atelectasis versus pneumonia. Additionally, there is a 2.5 cm right middle lobe p ulmonary nodule. The presence of an underlying neoplasm cannot be excluded. Follow-up CT of the chest is recommended. The remainder of the lungs are clear of alveolar opacities. There is no evidence for pleural effusio n. There is no evidence for vascular congestion. There is no acute osseous pathology. IMPRESSION: 1. Persistent opacity of the lateral segment of the right middle lobe with differential including ate lectasis versus pneumonia. This lack of interval change could also result from postobstructive change s. 2. There is a 2.5 cm right middle lobe pulmonary nodule which is better seen on today's radiograph. F ollow-up CT of the chest with contrast is recommended. ACT 112: Negative or not required by law. Electronically signed by: Lloyd Puckett M.D. 12/18/2021 7:06 AM
--- NOTE | 2021-12-18 07:07 | Ultrasound Report ---
ULTRASOUND BILATERAL LOWER EXTREMITY VENOUS CLINICAL HISTORY: Dyspnea. Clinical concern for deep venous thrombosis. COMPARISON STUDY: Right lower extremity venous ultrasound dated 05/17/2010. TECHNIQUE: Real-time, grayscale, and color Doppler sonography of the deep veins of the right and left lower extremity was performed from the inguinal crease to the calf. Compression and augmentation wer e utilized. FINDINGS: There is no sonographic evidence of deep venous thrombosis identified in the right or left lower extremity. The common femoral, superficial femoral, and popliteal veins are patent and normally compressible bilaterally. The greater saphenous vein and the profunda femoris vein at the junction w ith the common femoral vein are clear in both legs. The visualized calf veins are patent bilaterally. IMPRESSION: There is no sonographic evidence of deep venous thrombosis identified in the right or lef t lower extremity. ACT 112: Negative or not required by law. Electronically signed by: Quentin Stevenson M.D. 12/18/2021 7:06 AM
[2021-12-18 07:10] LABS: Albumin Globulin Ratio 0.8 (0.9-2); BUN Creatinine Ratio 33.6 (10-20); Bilirubin,Total 0.3 mg/dl (0.2-1.0); Calcium 8.6 mg/dl (8.5-10.1); Creatinine Clr Calc Pharmacy 13.1 ml/min; Est GFR (Non-African American) 14.7 ml/min; Globulin 3.6 gm/dl (2.5-4.0); Potassium 5.4 mmol/L (3.5-5.1); Total Protein 6.6 gm/dl (6.0-8.3)
[2021-12-18 07:12] LABS: Troponin I 0.1 ng/ml (0-0.04)
[2021-12-18] MEDS: FLUTICASONE PROPIONATE NA SPR 16 GM BTL SCH (07:40)
[2021-12-18] MEDS: LORATADINE 10 MG TAB PO SCH (07:41)
[2021-12-18] MEDS: PANTOprazole 40 MG TAB PO SCH (07:41)
--- NOTE | 2021-12-18 07:56 | Pulmonary Consultation ---
Date of Consultation December 18, 2021 Assessment & Plan (1) Mediastinal mass: (2) Pulmonary mass: (3) COPD with emphysema: CT chest 12/18/2021 personally reviewed: Centrilobular and paraseptal emphysema appreciated bilaterally especially in the upper lobes Right hilar mass extending into the right middle and lower lobe with significant narrowing of the RBI Significant mediastinal lymphadenopathy especially station 7 --Right pulmonary mass with mediastinal lymphadenopathy Patient also seem to have metastases to the liver And the patient was a pipe smoker This is most likely lung cancer --Acute hypoxic respiratory failure Multifactorial Procalcitonin 89.79 BNP 376 Nasal MRSA negative --COPD with emphysema Patient not on any inhalers at home We will start the patient on Anoro to be used on a daily basis --Postobstructive segmental collapse of the right lower lobe This is most likely secondary to mass Unfortunately no intervention would be indicated right now Continue with flutter valve and Mucinex Plan: Continue with antibiotic for the time being Elevated procalcitonin could be from postobstructive pneumonia, malignancy can also give elevated procalcitonin He also has elevated BNP I spoke with Dr. Stevenson regarding the metastasis to the liver. It seems to be accessible by ultrasound for biopsy. Patient will be scheduled for biopsy of the metastatic lesion at the liver tomorrow as this will be the least invasive mode which will help with staging as well N.p.o. post midnight. All questions inquiries of the patient were answered in depth Case discussed with Dr. Camacho Please note the above document was generated using voice recognition software. It may contain grammatical, syntax or spelling errors.Any formal questions or co ncerns about the content, text or information contained within the body of this dictation should be directly addressed to the provider for clarification. History of Present Illness Attending Physician: Misa Liz DO History of Present Illness 86-year-old male past medical history of aortic stenosis, BPH, CKD stage III, CVA with dysphagia, diabetes, GERD, hypertension, hypothyroidism was admitted to hospital because of cough and shortness of breath Patient had CT abdomen pelvis which showed right lower lobe mass as well as subcarinal lymphadenopathy Pulmonary consulted for the same At the time of examination patient said that he has been losing weight since approximately couple of months. He has decreased appetite He does have cough but is not bringing up any phlegm. Denies any hemoptysis. No fever or chills. No dysuria, no diarrhea. No headache, no nausea or vomiting. He has completed multiple courses of antibiotics as an outpatient Social history: Used to be heavy pipe smoker quit approximately 18 years ago. Allergies Allergy/AdvReac Type Severity Reaction Status Date / Time losartan [From Cozaar] AdvReac Unknown Intolerance, Verified 12/17/21 19:59 fatigue Home Medications Medication Instructions Recorded Confirmed Type Contour Test Strips (blood sugar #50 ea NS 02/07/20 07/12/21 Rx diagnostic) fluticasone propionate 50 2 spray INTRANASAL DAILY #15.8 ml 08/08/20 12/17/21 Rx mcg/actuation nasal spray,suspension (Flonase Allergy Relief) loratadine 10 mg tablet 10 mg PO DAILY #30 tab 08/08/20 12/17/21 Rx pantoprazole 40 mg tablet,delayed 40 mg PO DAILY #90 tab 08/23/20 12/17/21 Rx release levothyroxine 50 mcg tablet 50 mcg PO QAM #90 tab 08/07/21 12/17/21 Rx simvastatin 20 mg tablet 20 mg PO HS #90 tab 08/13/21 12/17/21 Rx doxazosin 4 mg tablet 4 mg PO HS #90 tab 10/22/21 12/17/21 Rx lisinopril 2.5 mg tablet 5 mg PO QAM #180 tab 10/22/21 12/17/21 Rx furosemide 40 mg tablet 40 mg PO DAILY #90 tab 11/19/21 12/17/21 Rx amoxicillin 500 mg-potassium 1 tab PO Q12H #20 tab 12/14/21 12/17/21 Rx clavulanate 125 mg tablet (Augmentin) codeine 10 mg-guaifenesin 100 mg/5 5 ml PO Q6H PRN #237 ml 12/14/21 12/17/21 Rx mL oral liquid Patient History Medical History Allergic rhinitis Anemia Arthritis of left hip Atherosclerosis Bicuspid aortic valve pt unsure Chronic kidney disease, stage 3 (moderate) follows dr. mur[facility] Diabetes mellitus, controlled Diverticular disease Diverticulosis Edema not recently- lasix has helped Enlarged prostate with lower urinary tract symptoms (LUTS) Esophageal reflux Fatigue Hypercholesterolemia Hypertension Hypothyroidism Left ventricular hypertrophy pt unsure of this Low back pain Lumbar disc disease Patent foramen ovale Pelvic pain Retention of urine Stroke (2008) Oct 2008- from PFO in heart - [place]- speech slower/ right sided weakness/ follows with dr. murdock- ASA- decreased then stopped- treatment per pt's was AAA repair Venous insufficiency pt denies this Surgical History Abdominal aortic aneurysm (AAA) with repair- february 03, 2009- second oct 23, 2009- dr. Schuster at [place] did both procedures- follows with dr. 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 Beliefs That Will Affect Care: None Current Living Situation: Spouse Current Living Situation Comment: with current occupational status: retired Feels Safe at Home: Yes caffeine: Yes Dental Care, Regularly: Yes Physical Activity Frequency: Daily Seatbelt Use: always Assistive Devices: Glasses and Walker Review of Systems Review of Systems: All systems reviewed & are unremarkable except as noted in HPI & below Physical Exam Physical Exam: Constitutional: No acute distress, frail-appearing HEENT: EOMI, PERRLA Respiratory system: Decreased air entry on the right side, no wheeze, no rhonchi, no crackles CVS: S1-S2 positive, no murmurs or gallops Abdomen: Soft, nontender, nondistended, positive bowel sounds x4 Extremities: +2 pulses bilaterally radialis/ dorsalis pedis, no cyanosis, no edema Neuro: Awake alert oriented x3 Psych: Normal mood and affect G/U: Positive [place] Skin: no rashes, warm and dry Lymphatic: no cervical or axillary lymphadenopathy Results & Data Results & Data ([facility]) Vital Signs (Past 12 Hours) Vital Signs Temp Pulse Pulse Pulse Resp BP BP 12/18/21 07:11 135 H 12/18/21 06:59 36.4 C L 119 H 24 116/52 L 12/18/21 03:55 36.6 C 92 H 20 126/66 12/18/21 03:51 81 12/18/21 01:50 80 19 138/60 12/18/21 00:22 90 18 128/63 12/17/21 22:00 91 H 20 128/63 12/17/21 21:00 12/17/21 20:35 123 H 25 H Pulse Ox 12/18/21 07:11 12/18/21 06:59 97 12/18/21 03:55 96 12/18/21 03:51 12/18/21 01:50 98 12/18/21 00:22 95 12/17/21 22:00 97 12/17/21 21:00 86 L 12/17/21 20:35 87 L Laboratory Results 12/17/21 20:00 12/18/21 06:08 PG Care Time/CCT Total # of Minutes Spent Total Time Spent with Patient: Total time spent is greater than 50% in coordination of care (as documented) at patient's floor/unit and/or counseling patient: Coding Level of Care Code 26161 Initial Inpt Care Lvl 3 Diagnoses Mediastinal mass J98.59 Pulmonary mass R91.8 COPD with emphysema J43.9
--- NOTE | 2021-12-18 07:58 | CT Scan Report ---
CT SCAN OF THE ABDOMEN AND PELVIS WITHOUT IV CONTRAST CLINICAL HISTORY: Sepsis. Renal failure. COMPARISON STUDY: Abdominal CT dated 04/27/2019. TECHNIQUE: CT scan of the abdomen and pelvis is performed from the lung bases to the proximal femora. Images are reviewed in the axial, sagittal, and coronal planes. IV contrast was not administered for this examination due to poor renal function. Note that the examination is suboptimal without oral an d IV contrast. Examination is also degraded by motion artifact. A dose lowering technique was utilize d adhering to the principles of ALARA. CT DOSE: 312.08 mGy.cm FINDINGS: Lung bases: The heart is normal in size and without pericardial effusion. The coronary arteries and m itral annulus are densely calcified. There is complete atelectasis of the right middle lobe which is somewhat masslike in appearance. A 2.6 cm irregular nodule is seen in the right lower lobe in image # 48. There is mild patchy consolidation at the right lung base. The left lung bases clear noting depen dent atelectasis. No pleural effusion is identified. Liver: The unenhanced liver is normal in size and contour. Attenuation is heterogeneous. There is no intrahepatic biliary ductal dilatation. There is evidence of extensive/diffuse hepatic metastatic dis ease. A right lobe lesion on image #95 measures 3.9 cm. A national sales representative left lobe lesion on image #1 75 measures 4.1 cm. Gallbladder: There are calcified gallstones no CT evidence of acute cholecystitis. Spleen: Normal in size and attenuation. Pancreas: The unenhanced pancreas is atrophic and grossly unremarkable. Adrenal glands: Unremarkable. Kidneys: The unenhanced kidneys are atrophic and without hydronephrosis. There are no renal calculi i dentified. A 4.5 cm cyst arises from the left upper pole. Abdominal vasculature: There is advanced atherosclerotic calcification of the abdominal aorta. An aor tobiiliac stent graft is in place. The residual aneurysm sac measures 5.0 x 5.0 cm (AP x transverse). Bowel: There is advanced colonic diverticulosis without CT evidence of acute diverticulitis. No bowel obstruction is identified. Fecal retention is noted in the left colon. The appendix is well-visuali zed and normal. Peritoneum: There is no intraperitoneal free air or abdominal ascites. There is a small fat-containin g umbilical hernia. Lymphadenopathy: None. Pelvic viscera: The bladder is distended but otherwise grossly unremarkable. The prostate gland is en larged and heterogeneous. Skeletal structures: The skeletal structures are osteopenic. No lytic or blastic lesions are seen. IMPRESSION: 1. There is complete atelectasis of the right middle lobe with probable right middle lobe mass lesion extending to the hilum. This is highly concerning for neoplasm. 2. An additional 2.6 cm pulmonary nodule seen in the right lower lobe, also potentially represent a n eoplasm. 3. Mild patchy airspace consolidation is seen in the right lower lobe. Correlate clinically for evide nce of pneumonia. 4. There is evidence of multifocal hepatic metastatic disease. 5. An aortobiiliac stent graft is in place. The residual aneurysm sac measures 5 x 5 cm. 6. Cholelithiasis. 7. Advanced colonic diverticulosis without CT evidence of acute diverticulitis. 8. Additional findings as above.. ACT 112: Negative or not required by law. Electronically signed by: Quentin Stevenson M.D. 12/18/2021 7:56 AM
[2021-12-18] MEDS ORDERED: HEPARIN SOD 5,000 UNIT/0.5 ML VIAL SQ SCH (09:00)
--- NOTE | 2021-12-18 11:16 | CT Scan Report ---
CT chest diagnostic wo con CLINICAL HISTORY: Evaluate suspected right middle lobe lung mass. COMPARISON STUDY: Portable chest from 12/17/2021 CT DOSE: 208.40 mGy.cm TECHNIQUE: Standard CT of the Chest was performed without IV contrast. A dose lowering technique was utilized adhering to the principles of ALARA. FINDINGS: Airway: The airway is clear. No endobronchial lesion is identified. Lungs: On this limited examination without contrast, there is evidence for a right hilar mass with po stobstructive collapse of the lateral segment of the right middle lobe. The mass measures approximate ly 6.3 x 4.4 cm with compression of the right middle lobe bronchus. This is again not well seen on th ngoc noncontrast images. Additional right lower lobe pulmonary nodule is seen posteriorly. This measures approximately 3.3 x 2 .1 cm. The findings are characteristic of lung cancer. The remainder of the lungs are clear. No other pulmonary nodules are identified. Pleura: There is no evidence for pleural effusion. There is no evidence for pneumothorax. Mediastinum: There is no evidence for additional pathologic adenopathy on these limited noncontrast i mages. The heart size is within normal limits. There is extensive coronary artery calcification prese nt. There is also mitral annular calcification. The thoracic aorta is within normal limits. Prominent atherosclerotic calcification is present. There is no evidence for pericardial effusion. Upper abdomen: The adrenal glands are normal bilaterally. Osseous structures: There is no acute osseous pathology. Degenerative changes are seen within the spi ne. IMPRESSION: 1. Limited noncontrast CT confirms the presence of a large right hilar mass with postobstructive pamela apse of the lateral segment of the right middle lobe. 2. Additional right lower lobe pulmonary nodules present. 3. Findings are characteristic of lung cancer. 4. Extensive coronary artery and atherosclerotic calcification is present. ACT 112: Negative or not required by law. Electronically signed by: Lloyd Puckett M.D. 12/18/2021 11:15 AM
[2021-12-18] MEDS: UMECLIDINIUM/VILANTEROL 62.5/25MCG 7 PUFFS/INHALER INH SCH (11:41)
[2021-12-18] MEDS: guaiFENesin/DEXTROM SYRUP 200MG/20MG 10ML UDC PO SCH ×3 (11:41→23:23)
--- NOTE | 2021-12-18 16:50 | Electrocardiogram Report ---
Test Reason : Blood Pressure : / mmHG Vent. Rate : 126 BPM Atrial Rate : 126 BPM P-R Int : 082 ms QRS Dur : 136 ms QT Int : 332 ms P-R-T Axes : 070 -81 015 degrees QTc Int : 480 ms Probably Sinus tachycardia although an atrial flutter cannot be excluded Right bundle branch block Left anterior fascicular block Bifascicular block Abnormal ECG When compared with ECG of 24-MAR-2013 08:35, (RBBB and left anterior fascicular block) is now Present Confirmed by Bryon Kaplan ([id number]) on 12/18/2021 4:49:50 PM Referred By: REFERRED SELF Confirmed By:Steve Kaplan
--- NOTE | 2021-12-18 16:51 | Electrocardiogram Report ---
Test Reason : Blood Pressure : / mmHG Vent. Rate : 126 BPM Atrial Rate : 138 BPM P-R Int : 208 ms QRS Dur : 144 ms QT Int : 352 ms P-R-T Axes : 000 263 009 degrees QTc Int : 509 ms Poor data quality, interpretation may be adversely affected Probably atrial flutter Right bundle branch block Abnormal ECG Confirmed by Bryon Kaplan ([id number]) on 12/18/2021 4:50:59 PM Referred By: REFERRED SELF Confirmed By:Steve Kaplan
[2021-12-18] MEDS: SIMVASTATIN 20 MG TAB PO SCH (20:06)
[2021-12-18] MEDS: DOXAZosin MESYLATE 4 MG TAB PO SCH (20:06)
[2021-12-18] MEDS: SODIUM BICARBONATE 650 MG TAB PO SCH (20:08)
[2021-12-18] MEDS: D5W AND 1/2NSS 1,000 ML IV SCH (23:22)
[2021-12-19] MEDS: LEVOTHYROXINE SODIUM 50 MCG TABLET PO SCH (05:33)
[2021-12-19] MEDS: guaiFENesin/DEXTROM SYRUP 200MG/20MG 10ML UDC PO SCH ×4 (05:34→20:47)
[2021-12-19] MEDS: PIPERACILLIN/TAZOBACTAM 3.375 GM in DEXTROSE 5% 100 ML IV SCH ×2 (05:34→18:41)
[2021-12-19 08:31] LABS: Hematocrit (blood only) 27.8 % (42-52); Hemoglobin 9.2 g/dL (14.0-18.0); Mean Corpuscular Hemoglobin 26.2 pg (25-34); Mean Corpuscular Hgb Conc 33.1 g/dL (32-36); Mean Corpuscular Volume 79.2 fL (80-100); Mean Platelet Volume 9.9 fL (7.4-10.4); Platelet Count 303 K/uL (130-400); RDW Standard Deviation 43.1 fL (36.4-46.3); Red Blood Count 3.51 M/uL (4.7-6.1)
[2021-12-19 08:57] LABS: BUN Creatinine Ratio 36.4 (10-20); Calcium 8.3 mg/dl (8.5-10.1); Creatinine Clr Calc Pharmacy 16.6 ml/min; Est GFR (African American) 22.5 ml/min; Est GFR (Non-African American) 19.4 ml/min; Potassium 4.6 mmol/L (3.5-5.1)
[2021-12-19 09:00] LABS: Basophils # (auto) 0.01 K/uL (0-0.2); Basophils % (auto) 0.1 %; Eosinophils # (auto) 0.04 K/uL (0-0.5); Eosinophils % (auto) 0.4 %; Immature Granulocytes # (auto) 0.09 K/uL (0.00-0.02); Immature Granulocytes % (auto) 0.9 %; Lymphocytes # (auto) 1.04 K/uL (1.2-3.4); Lymphocytes % (auto) 10.5 %; Monocytes # (auto) 0.68 K/uL (0.11-0.59); Monocytes % (auto) 6.9 %; Neutrophils # (auto) 8.04 K/uL (1.4-6.5); Neutrophils % (auto) 81.2 %; Ovalocytes 1+
--- NOTE | 2021-12-19 09:11 | Pulmonology Progress Note ---
Date of Service December 19, 2021 Assessment & Plan (1) Mediastinal mass: (2) Pulmonary mass: (3) COPD with emphysema: Plan: CT chest 12/18/2021 personally reviewed: Centrilobular and paraseptal emphysema appreciated bilaterally especially in the upper lobes Right hilar mass extending into the right middle and lower lobe with significant narrowing of the RBI Significant mediastinal lymphadenopathy especially station 7 --Right pulmonary mass with mediastinal lymphadenopathy Patient also seem to have metastases to the liver And the patient was a pipe smoker This is most likely lung cancer --Acute hypoxic respiratory failure Multifactorial Procalcitonin 89.79 BNP 376 Nasal MRSA negative --COPD with emphysema Patient not on any inhalers at home We will start the patient on Anoro to be used on a daily basis --Postobstructive segmental collapse of the right lower lobe This is most likely secondary to mass Unfortunately no intervention would be indicated right now Continue with flutter valve and Mucinex Plan: For the patient's cough I will add chest PT to help him bring up the phlegm Patient is supposed to have liver biopsy done today. He is complaining of pain I would not like to give him any sedating medication. I will give him Tylenol 1 g IV x1 Morphine/Dilaudid as needed after the procedure Continue with antibiotics for total of 7-10 days Overall prognosis of the patient is guarded. Palliative care should be entertained MRI of the brain could be thought off given the size of the mass. On 12/18/2021 I had in-depth discussion regarding the patient finding on the chest as well as the mets to the liver with patient as well as patient's were in the room. All questions inquiries of the patient as well as patient's and answered in depth. No further recommendation from pulmonary perspective. Will sign off. Please call directly with any questions Please note the above document was generated using voice recognition software. It may contain grammatical, syntax or spelling errors.Any formal questions or concerns about the content, text or information contained within the body of this dictation should be directly addressed to the provider for clarification. Admission and Anticipated Discharge Date Admission Date: December 18, 2021 Subjective Patient seen and examined at bedside. Patient was in distress while complaining of generalized pain He still complains of cough unable to bring up any phlegm He has been using flutter valve Denies any headache, no nausea or vomiting. Review of Systems Review of Systems: All systems reviewed & are unremarkable except as noted in Subjective Physical Exam Physical Exam: Constitutional: No acute distress, frail-appearing HEENT: EOMI, PERRLA Respiratory system: Decreased air entry on the right side, no wheeze, no rhonchi, no crackles CVS: S1-S2 positive, no murmurs or gallops Abdomen: Soft, nontender, nondistended, positive bowel sounds x4 Extremities: +2 pulses bilaterally radialis/ dorsalis pedis, no cyanosis, no edema Neuro: Awake alert oriented x3 Psych: Normal mood and affect G/U: Positive Barnett Skin: no rashes, warm and dry Lymphatic: no cervical or axillary lymphadenopathy Results & Data Results & Data ([facility]) Vital Signs (Past 12 Hours) Vital Signs Temp Pulse Pulse Resp BP Pulse Ox 12/19/21 08:39 37.0 C 90 18 118/62 92 12/19/21 07:53 36.9 C 85 20 125/54 L 92 12/19/21 07:29 88 12/19/21 02:51 36.8 C 83 18 111/57 L 93 12/18/21 23:54 96 H 12/18/21 23:10 37.0 C 104 H 22 114/56 L 93 Laboratory Results 12/19/21 07:48 12/19/21 07:48 PG Care Time/CCT Total # of Minutes Spent Total Time Spent with Patient: Total time spent is greater than 50% in coordination of care (as documented) at patient's floor/unit and/or counseling patient: [place] [address] Subseq Hosp Care Lvl 2 Patient Type Established Diagnoses Mediastinal mass J98.59 Pulmonary mass R91.8 COPD with emphysema J43.9
[2021-12-19] MEDS ORDERED: ACETAMINOPHEN 1000 MG/100 ML IV IV STA (09:38)
[2021-12-19] MEDS: D5W AND 1/2NSS 1,000 ML IV SCH (11:55)
[2021-12-19] MEDS: UMECLIDINIUM/VILANTEROL 62.5/25MCG 7 PUFFS/INHALER INH SCH (12:25)
[2021-12-19] MEDS: FLUTICASONE PROPIONATE NA SPR 16 GM BTL SCH (12:29)
[2021-12-19] MEDS: LORATADINE 10 MG TAB PO SCH (12:29)
[2021-12-19] MEDS: PANTOprazole 40 MG TAB PO SCH (12:30)
[2021-12-19] MEDS: SODIUM BICARBONATE 650 MG TAB PO SCH ×2 (12:30→20:42)
--- NOTE | 2021-12-19 15:28 | Ultrasound Report ---
ULTRASOUND-GUIDED FINE-NEEDLE ASPIRATION CLINICAL HISTORY: Liver lesions. Please send for special markers COMPARISON: None available at the time of this dictation. PROCEDURE: The risks, benefits, and alternatives to the procedure were discussed with the patient. Wr itten informed consent was obtained. The patient was placed supine in ultrasound, and the left liver lesion was localized by ultrasound and selected for fine needle aspiration. The nodule was aspirated under ultrasound guidance with 3 passes utilizing 25-gauge needles. Specimens were reviewed by the pa thologist in real-time and deemed adequate for diagnosis. The patient tolerated the procedure well an d left the department in satisfactory condition. IMPRESSION: Completed fine-needle aspiration of a left liver lesion as above. ACT 112: Negative or not required by law. Electronically signed by: Sharan Bruner M.D. 12/19/2021 3:27 PM
[2021-12-19] MEDS: MoRPHine SULFATE 2 MG/ML CARP IV PRN (16:31)
[2021-12-19] MEDS: DOXAZosin MESYLATE 4 MG TAB PO SCH (20:42)
[2021-12-19] MEDS: SIMVASTATIN 20 MG TAB PO SCH (20:42)
--- NOTE | 2021-12-19 21:03 | Hospitalist Progress Note ---
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 FOund to have likely lung cancer with liver metastases and postobstructive pneumonia. Lung masses with liver metastases & postobstructive pneumonia CT with large right infrahilar mass at least 6 cm in side obstructing right middle and lower lobe bronchi, additional 2.4 cm mass in right lower lobe, numerous mass lesions throughout enlarged liver characteristic of liver metastases At current time, patient and wish to evaluate options and decide whether to pursue treatment Consult pulmonology Received clindamycin, vancomycin, Zosyn in the ED will continue on Zosyn for now MRSA nasal swab positive will cover with vancomycin as well Continue home guaifenesin with codeine for cough reduction Acetaminophen and morphine 1 mg every 4 as needed for ongoing rib pain Oxygen supplementation as needed On 12/19 Patient has a poor prognosis given postobstructive pneumonia Patient also has mets to liver. Awaiting biopsy results. However, his is leaning towards patient being discharged home on hospice. And focusing on comfort measures will discuss with case management updated grand daughter as well. Acute on chronic kidney disease Baseline creatinine seems to be around 2.4-2.5 Creatinine on admission at 3.97 with BUN of 126, BUN/creatinine ratio of 31.7 ALEC likely due to dehydration Continue NSS at 125 cc/h started in ED Hold lisinopril and Lasix Avoid nephrotoxins Right lower extremity swelling Venous Doppler ordered If positive for DVT, will require anticoagulation Does have mildly elevated troponin, BNP, oxygen requirement, new malignancy Maintain high degree of vigilance for possibility of PE Elevated troponin Likely supply demand mismatch Trend every 8 hours Elevated BNP BNP elevation could potentially be due to pulmonary malignancy Considered echocardiogram, but will hold off at this time as he seems less likely to be in heart failure -In the setting of ALEC, good idea to avoid contrast for echo BPH with LUTS Continue doxazosin Rhinitis Continue Flonase and loratadine Hypertension/chronic edema Hold furosemide and lisinopril in the setting of ALEC GERD Continue pantoprazole Hyperlipidemia Continue simvastatin DVT prophylaxis: Heparin SQ Diet: Heart healthy/carb consistent, NSS at 125 cc/h Dispo: Admit to [facility] telemetry CODE STATUS: DNR/DNI Admission and Anticipated Discharge Date Admission Date: December 18, 2021 Subjective Patient reports pain at site of biopsy. Patient is requesting morphine. Review of Systems Review of Systems: All systems reviewed & are unremarkable except as noted in HPI & below Physical Exam Physical Exam: GENERAL: A&Ox3. NAD. HEENT: PERRL, EOMI. Dry mucous membranes. NECK: No JVD. Supple. CHEST/LUNGS: Rhonchi in bilateral lower lungs, no wheezes, no crackles. HEART: RRR. No m/g/r. No carotid bruits. ABDOMEN: NT/ND, soft. BS+ x4 EXTREMITIES: No cyanosis, no clubbing. Mild swelling of the right lower extremity. Homans' sign negative. SKIN: Warm and dry. No rashes or lesions. PSYCHIATRIC: Euthymic affect, no SI, no pressured speech, no hallucinations NEUROLOGIC: No FND. CN II-XII grossly intact. Results & Data Results & Data ([facility]) Vital Signs (Past 12 Hours) Vital Signs Temp Pulse Resp BP BP Pulse Ox 12/19/21 19:45 36.7 C 87 20 131/61 91 12/19/21 15:48 36.3 C L 86 22 127/52 L 90 12/19/21 11:57 36.7 C 88 20 120/55 L 92 12/19/21 11:00 36.4 C L 90 20 113/59 L 91 12/19/21 10:09 36.8 C 101 H 24 128/64 91 PG Care Time/CCT Total # of Minutes Spent Total Time Spent with Patient: Total time spent is greater than 50% in coordination of care (as documented) at patient's floor/unit and/or counseling patient: Coding Level of Care Code 52556 Subseq Hosp Care Lvl 3 Diagnoses Acute on chronic kidney failure N17.9; N18.9 Acute renal failure type: unspecified Chronic kidney disease stage: unspecified stage Metastatic disease C79.9 Area of secondary neoplastic involvement: unspecified site Mass of right lung R91.8 Postobstructive pneumonia J18.9 Enlarged prostate with lower urinary tract symptoms (LUTS) N40.1 Rhinitis J31.0 Edema R60.9 Hypertension I10 Hypothyroidism E03.9 Hypercholesterolemia E78.00 Elevated troponin R77.8 Chronic kidney disease, stage 3 (moderate) N18.3 Esophageal reflux K21.9 Time Spent (min) 50 (1) Metastatic disease Area of secondary neoplastic involvement: unspecified site Qualified Code(s): C79.9 - Secondary malignant neoplasm of unspecified site (2) Acute on chronic kidney failure Acute renal failure type: unspecified Chronic kidney disease stage: unspecified stage Qualified Code(s): N17.9 - Acute kidney failure, unspecified; N18.9 - Chronic kidney disease, unspecified
[2021-12-20] MEDS: D5W AND 1/2NSS 1,000 ML IV SCH ×2 (00:07→12:36)
[2021-12-20] MEDS: guaiFENesin/DEXTROM SYRUP 200MG/20MG 10ML UDC PO SCH ×4 (04:51→20:26)
[2021-12-20] MEDS: PIPERACILLIN/TAZOBACTAM 3.375 GM in DEXTROSE 5% 100 ML IV SCH ×2 (05:51→17:30)
[2021-12-20] MEDS: LEVOTHYROXINE SODIUM 50 MCG TABLET PO SCH (05:54)
[2021-12-20] MEDS: SODIUM BICARBONATE 650 MG TAB PO SCH ×2 (09:44→21:39)
[2021-12-20] MEDS: LORATADINE 10 MG TAB PO SCH (09:44)
[2021-12-20] MEDS: PANTOprazole 40 MG TAB PO SCH (09:44)
[2021-12-20] MEDS: FLUTICASONE PROPIONATE NA SPR 16 GM BTL SCH ×2 (09:48→10:56)
[2021-12-20] MEDS: UMECLIDINIUM/VILANTEROL 62.5/25MCG 7 PUFFS/INHALER INH SCH ×2 (09:48→10:55)
[2021-12-20] MEDS: MoRPHine SULFATE 2 MG/ML CARP IV PRN ×3 (10:23→21:37)
[2021-12-20] MEDS ORDERED: LIDOCAINE 1% LOCAL 20 ML VIAL ONE (13:53)
--- NOTE | 2021-12-20 20:49 | Hospitalist Progress Note ---
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 FOund to have likely lung cancer with liver metastases and postobstructive pneumonia. Lung masses with liver metastases & postobstructive pneumonia CT with large right infrahilar mass at least 6 cm in side obstructing right middle and lower lobe bronchi, additional 2.4 cm mass in right lower lobe, numerous mass lesions throughout enlarged liver characteristic of liver metastases At current time, patient and wish to evaluate options and decide whether to pursue treatment Consult pulmonology Received clindamycin, vancomycin, Zosyn in the ED will continue on Zosyn for now MRSA nasal swab positive will cover with vancomycin as well Continue home guaifenesin with codeine for cough reduction Acetaminophen and morphine 1 mg every 4 as needed for ongoing rib pain Oxygen supplementation as needed On 12/19 Patient has a poor prognosis given postobstructive pneumonia Patient also has mets to liver. Awaiting biopsy results. However, his is leaning towards patient being discharged home on hospice. And focusing on comfort measures will discuss with case management updated grand daughter as well. On 12/20 Plan to discharge home on hospice. However no transport was avaialble, and patient remained in hospital for another night. Plan to discharge tomorrow in AM by 9:30. Discharge plan is setup for AM. Meds sent to pharmacy. Acute on chronic kidney disease Baseline creatinine seems to be around 2.4-2.5 Creatinine on admission at 3.97 with BUN of 126, BUN/creatinine ratio of 31.7 ALEC likely due to dehydration IVF discontinued. Hold lisinopril and Lasix Avoid nephrotoxins Right lower extremity swelling Venous Doppler ordered If positive for DVT, will require anticoagulation Does have mildly elevated troponin, BNP, oxygen requirement, new malignancy Maintain high degree of vigilance for possibility of PE Elevated troponin Likely supply demand mismatch Trend every 8 hours Elevated BNP BNP elevation could potentially be due to pulmonary malignancy Considered echocardiogram, but will hold off at this time as he seems less likely to be in heart failure -In the setting of ALEC, good idea to avoid contrast for echo BPH with LUTS Continue doxazosin Rhinitis Continue Flonase and loratadine Hypertension/chronic edema Hold furosemide and lisinopril in the setting of ALEC GERD Continue pantoprazole Hyperlipidemia Continue simvastatin DVT prophylaxis: Heparin SQ Diet: Heart healthy/carb consistent, NSS at 125 cc/h Dispo: Admit to med telemetry CODE STATUS: DNR/DNI Admission and Anticipated Discharge Date Admission Date: December 18, 2021 Subjective Patient reports no new symptoms today. Review of Systems Review of Systems: All systems reviewed & are unremarkable except as noted in HPI & below Physical Exam Physical Exam: GENERAL: A&Ox3. NAD. HEENT: PERRL, EOMI. Dry mucous membranes. NECK: No JVD. Supple. CHEST/LUNGS: Rhonchi in bilateral lower lungs, no wheezes, no crackles. HEART: RRR. No m/g/r. No carotid bruits. ABDOMEN: NT/ND, soft. BS+ x4 EXTREMITIES: No cyanosis, no clubbing. Mild swelling of the right lower extremity. Homans' sign negative. SKIN: Warm and dry. No rashes or lesions. PSYCHIATRIC: Euthymic affect, no SI, no pressured speech, no hallucinations NEUROLOGIC: No FND. CN II-XII grossly intact. Results & Data Results & Data ([facility]) Vital Signs (Past 12 Hours) Vital Signs Temp Pulse Pulse Resp BP BP Pulse Ox 12/20/21 18:52 36.6 C 104 H 18 128/70 95 12/20/21 16:07 105 H 12/20/21 16:00 36.3 C L 83 18 125/62 95 12/20/21 10:45 36.5 C 101 H 20 125/63 94 PG Care Time/CCT Total # of Minutes Spent Total Time Spent with Patient: Total time spent is greater than 50% in coordination of care (as documented) at patient's floor/unit and/or counseling patient: Coding Level of Care Code 55427 Subseq Hosp Care Lvl 3 Diagnoses Acute on chronic kidney failure N17.9; N18.9 Acute renal failure type: unspecified Chronic kidney disease stage: unspecified stage Metastatic disease C79.9 Area of secondary neoplastic involvement: unspecified site Mass of right lung R91.8 Postobstructive pneumonia J18.9 Enlarged prostate with lower urinary tract symptoms (LUTS) N40.1 Rhinitis J31.0 Edema R60.9 Hypertension I10 Hypothyroidism E03.9 Hypercholesterolemia E78.00 Elevated troponin R77.8 Chronic kidney disease, stage 3 (moderate) N18.3 Esophageal reflux K21.9 Time Spent (min) 35 (1) Metastatic disease Area of secondary neoplastic involvement: unspecified site Qualified Code(s): C79.9 - Secondary malignant neoplasm of unspecified site (2) Acute on chronic kidney failure Acute renal failure type: unspecified Chronic kidney disease stage: unspecified stage Qualified Code(s): N17.9 - Acute kidney failure, unspecified; N18.9 - Chronic kidney disease, unspecified
[2021-12-20] MEDS: SIMVASTATIN 20 MG TAB PO SCH (21:39)
[2021-12-20] MEDS: DOXAZosin MESYLATE 4 MG TAB PO SCH (21:39)
[2021-12-21] MEDS: D5W AND 1/2NSS 1,000 ML IV SCH (00:22)
[2021-12-21] MEDS: MoRPHine SULFATE 2 MG/ML CARP IV PRN ×2 (02:12→08:00)
[2021-12-21] MEDS: guaiFENesin/DEXTROM SYRUP 200MG/20MG 10ML UDC PO SCH (04:02)
[2021-12-21] MEDS: PIPERACILLIN/TAZOBACTAM 3.375 GM in DEXTROSE 5% 100 ML IV SCH (05:39)
[2021-12-21] MEDS: LEVOTHYROXINE SODIUM 50 MCG TABLET PO SCH (05:39)
[2021-12-21] MEDS: FLUTICASONE PROPIONATE NA SPR 16 GM BTL SCH ×2 (08:20→08:26)
[2021-12-21] MEDS: SODIUM BICARBONATE 650 MG TAB PO SCH (08:21)
[2021-12-21] MEDS: LORATADINE 10 MG TAB PO SCH (08:21)
[2021-12-21] MEDS: PANTOprazole 40 MG TAB PO SCH (08:21)
[2021-12-21] MEDS: UMECLIDINIUM/VILANTEROL 62.5/25MCG 7 PUFFS/INHALER INH SCH ×2 (08:21→08:26)
--- NOTE | 2021-12-21 12:26 | Discharge Summary ---
Date of Service December 21, 2021 Admission HPI Per Admitting Provider 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 In the outpatient setting, patient had chest x-rays consistent with pneumonia and was treated with several courses of antibiotics, including doxycycline and Augmentin. He decided to come in today as his cough had not improved, and if anything had worsened. Additionally, patient felt significantly short of breath and had developed rib pain from constant coughing. Patient has had associated weakness and weight loss. He did have a fall at home on 12/16, but did not hit his head or have any significant injury from it. He was advised by his primary care provider to visit the emergency department, but patient had initially refused. Upon arrival to the ED, patient was found to be hypoxic to 86%. He had lab work showing mild leukocytosis to 11.35, anemia with hemoglobin of 9.9, platelet count of 341. He was found to be hyponatremic at 134, hyperkalemic at 5.2, elevated BUN to 126, creatinine elevated to 3.97 (baseline around 2.4), had alk phos increased to 142, troponin of 0.12, BNP of 376, procalcitonin of 89.79. A CT of the chest showed a large mass lesion in the right infrahilar region, which was at least 6 cm in size obstructing the right middle and lower lobe bronchi. Also showed 2.4 cm mass in the right lower lobe, as well as numerous ill-defined mass lesions throughout an enlarged liver, characteristic of liver metastases. Upon discussion of his imaging findings, patient stated that he expected something like this. He states he smoked a pipe for many years when he used to go bird watching. At this time, patient is interested in discussing treatment possibilities, to ultimately decide if he believes it will be worthwhile for h im. He is clear that he would not want any resuscitative efforts should he have a cardiac or respiratory arrest. At this time complaining of ongoing productive cough with associated rib pain. Denying fever, chills, nausea, vomiting, chest pain, palpitations, abdominal pain, headache, dizziness, numbness, rash. Principal Diagnosis Metastatic malignancy with acute hypoxic respiratory failure Acute on chronic kidney disease stage III Discharge Exam The patient appeared well and declining Vital signs as documented. Lungs coarse throughout and aspiratory effort does appear labored Cardiac exam, Rhythm is regular.. Systolic ejection murmur is heard Extremities are edematous Neurologic exam is alert and oriented x3 but sleepy Discharge Data Allergies Allergy/AdvReac Type Severity Reaction Status Date / Time losartan [From Cozaar] AdvReac Unknown Intolerance, Verified 12/17/21 19:59 fatigue Consultations 12/17/21 23:48 ED Decision to Admit Stat 12/18/21 04:04 Consult Pulmonology Routine Ordered Studies 12/17/21 21:46 CT abd pelvis wo con Urgent 12/18/21 00:45 US venous doppler LE BI Urgent 12/18/21 07:56 CT chest diagnostic wo con Routine 12/19/21 07:00 US FNA w/img 1st lesion Routine Hospital Course (1) Metastatic disease: 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 Found to have likely lung cancer with liver metastases and postobstructive pneumonia. Lung masses with liver metastases & postobstructive pneumonia CT with large right infrahilar mass at least 6 cm in side obstructing right middle and lower lobe bronchi, additional 2.4 cm mass in right lower lobe, numerous mass lesions throughout enlarged liver characteristic of liver m etastases significant oxygen supplementation is required Patient has a poor prognosis given postobstructive pneumonia Patient also has mets to liver. Awaiting biopsy results of liver mass. Family is supportive of pt discharged home on hospice and focusing on comfort measures (2) Acute on chronic kidney failure: Acute on chronic kidney disease Baseline creatinine seems to be around 2.4-2.5 Creatinine on admission at 3.97 with BUN of 126, BUN/creatinine ratio of 31.7 ALEC likely due to dehydration IVF discontinued with decision to move to hospice care Hold lisinopril and Lasix (3) Mass of right lung: (4) Postobstructive pneumonia: (5) Enlarged prostate with lower urinary tract symptoms (LUTS): (6) Rhinitis: (7) Edema: Right lower extremity swelling Venous Doppler negative for DVT (8) Hypertension: (9) Hypothyroidism: (10) Hypercholesterolemia: (11) Elevated troponin: (12) Chronic kidney disease, stage 3 (moderate): (13) Esophageal reflux: Elevated troponin Likely supply demand mismatch BPH with LUTS Continue doxazosin Rhinitis Continue Flonase and loratadine Hypertension/chronic edema Hold furosemide and lisinopril in the setting of ALEC CODE STATUS: DNR/DNI Total Time Total Time Spent Total Time Spent (In Minutes): It required less than 30 minutes to prepare this patient for discharge Discharge Plan Discharge Items Patient Disposition: Hospice - Home Reason For Visit: RECURRENT PNA, LUNG MASS Discharge Diagnosis: right hilar mass Activity: Resume your previous activity Non-emergency contact: Primary Care Provider Call non-emergency contact if: you have any medication questions Follow-up/Referrals: Bryon Rose MD [Primary Care Provider] - Diet: Carb Consistent or DM2 and Heart Healthy Addtl Attending Provider Instructions: Dr. Rene, Sadly you were diagnosed with a right hilar mass that is compressing the right middle lobe bronchus. We obtained a biopsy from the liver, and the pathology is currently pending. However, the postobstructive pneumonia carries a poor prognosis. We had a discussion with you and your Sandy, and going home and focusing on being comfortable appears to be on the top of your list regarding goals of care. Case management is working with you on obtaining home hospice. It was a pleasure meeting you and we are grateful for the love and hard work you gave to your patients. Martin Camacho Pending Studies at Discharge: No Stand-Alone Forms: My [facility] Medications and DC Order Prescriptions: New Anoro Ellipta 62.5-25 mcg/actuation Blister With Device 1 ea inhalation DAILY Qty: 60 RF: 0 sodium bicarbonate 650 mg Tablet 650 mg PO BID Qty: 60 RF: 0 morphine concentrate 100 mg/5 mL (20 mg/mL) solution 5 mg PO Q4H PRN (Reason: pain/ sob) Qty: 30 RF: 0 lorazepam [Ativan] 0.5 mg tablet 0.5 mg PO DAILY PRN (Reason: terminal agitation) Qty: 30 RF: 0 atropine 1 % drops 4 drp PO Q4H Qty: 5 RF: 0 Continued (DME) Contour Test Strips Strip See Dose Instructions .ROUTE .MEDSUPPLY Qty: 50 RF: 2 pantoprazole 40 mg tablet,delayed release (DR/EC) 40 mg PO DAILY Qty: 90 RF: 3 levothyroxine 50 mcg tablet 50 mcg PO QAM Qty: 90 RF: 3 simvastatin 20 mg tablet 20 mg PO HS Qty: 90 RF: 3 doxazosin 4 mg tablet 4 mg PO HS Qty: 90 RF: 3 codeine-guaifenesin 10-100 mg/5 mL liquid 5 ml PO Q6H PRN (Reason: allergy symptoms) Qty: 237 RF: 0 loratadine 10 mg tablet 10 mg PO DAILY Qty: 30 RF: 5 fluticasone propionate [Flonase Allergy Relief] 50 mcg/actuation spray,suspension 2 spray intranasal DAILY Qty: 15.8 RF: 5 amoxicillin-pot clavulanate [Augmentin] 500-125 mg tablet 1 tab PO Q12H Qty: 20 RF: 0 Changed furosemide 40 mg tablet 40 mg PO DAILY PRN (Reason: edema) Qty: 90 RF: 3 Discontinued lisinopril 2.5 mg tablet 5 mg PO QAM Qty: 180 RF: 3 Hold Instructions: decreased BP Discharge Orders: Discharge Order (Routine); Ordered 12/21/21 Ordered By: Julien Soriano Admission Data Admit Date/Time: 12/18/21 00:45 Attending Provider: Julien Soriano Admit Provider: Aryan Salcedo Primary Care Provider: Bryon Rose Other Providers: Misa Liz Mu[place] ; [facility],Home Healthcare ; [facility],Referral Center Other Interventions: Discharge Summary Assessment (RN) Last Done: 12/21/21 09:22 Coding Level of Care Code D/C DAY MANAGEMENT <30 MINS Diagnoses Acute on chronic kidney failure N17.9; N18.9 Acute renal failure type: unspecified Chronic kidney disease stage: unspecified stage Metastatic disease C79.9 Area of secondary neoplastic involvement: unspecified site Mass of right lung R91.8 Postobstructive pneumonia J18.9 Enlarged prostate with lower urinary tract symptoms (LUTS) N40.1 Rhinitis J31.0 Edema R60.9 Hypertension I10 Hypothyroidism E03.9 Hypercholesterolemia E78.00 Elevated troponin R77.8 Chronic kidney disease, stage 3 (moderate) N18.3 Esophageal reflux K21.9
== END 2021-12-21 10:04 | disposition hospice, home (50) | DRG 193 ==
LOC: ED 19:45 → 2N 12-18 00:45 → SUATTDRO 12-18 00:45 → 2N 12-18 01:50
DX: R79.89 Other specified abnormal findings of blood chemistry; E87.2 Acidosis; N18.30 Chronic kidney disease, stage 3 unspecified; M79.89 Other specified soft tissue disorders; I69.328 Other speech and language deficits following cerebral infarction; I69.391 Dysphagia following cerebral infarction; C34.91 Malignant neoplasm of unspecified part of right bronchus or lung; Z79.51 Long term (current) use of inhaled steroids; Z87.891 Personal history of nicotine dependence; Z79.890 Hormone replacement therapy; C78.7 Secondary malignant neoplasm of liver and intrahepatic bile duct; J18.9 Pneumonia, unspecified organism; N40.1 Benign prostatic hyperplasia with lower urinary tract symptoms; J96.01 Acute respiratory failure with hypoxia; R59.0 Localized enlarged lymph nodes; I12.9 Hypertensive chronic kidney disease with stage 1 through stage 4 chronic kidney disease, or unspecified chronic kidney disease; E86.0 Dehydration; I69.351 Hemiplegia and hemiparesis following cerebral infarction affecting right dominant side; E78.5 Hyperlipidemia, unspecified; Z88.8 Allergy status to other drugs, medicaments and biological substances; Z77.22 Contact with and (suspected) exposure to environmental tobacco smoke (acute) (chronic); N17.9 Acute kidney failure, unspecified; Z20.822 Contact with and (suspected) exposure to COVID-19; K21.9 Gastro-esophageal reflux disease without esophagitis; J43.9 Emphysema, unspecified; E11.22 Type 2 diabetes mellitus with diabetic chronic kidney disease; Z79.899 Other long term (current) drug therapy; R39.9 Unspecified symptoms and signs involving the genitourinary system; E78.00 Pure hypercholesterolemia, unspecified; Z51.5 Encounter for palliative care; E03.9 Hypothyroidism, unspecified; J30.9 Allergic rhinitis, unspecified; Z66 Do not resuscitate